=== PATIENT | female | born 1960 | race Caucasian/White ===

== ENCOUNTER 2022-01-25 03:06 | Observation (INO) | payer BC ==
[2022-01-25 03:40] LABS: #Basophils 0.1 10x3/uL (0.0-0.2); #Eosinphils 0.2 10x3/uL (0.0-0.5); #Monocytes 0.5 10x3/uL (0.0-1.1); #Neutrophils 2.5 10x3/uL (1.5-8.4); %Basophils 1.7 % (0.0-2.0); %Eosinophils 4.2 % (0.0-6.0); %Lymphocytes 36.5 % (18.0-47.0); %Neutrophils 47.4 % (40.0-75.0); Hemoglobin 13.9 g/dL (12.0-15.5); Mean Corpuscular Hemoglobin 31.3 pg (27.0-33.0); Mean Corpuscular Volume 94.8 fl (81.6-98.3); Mean Platelet Volume 10.6 fl (7.4-10.4); Platelet Count 289 10x3/uL (150-450); RBC Distribution Width 12.6 % (11.5-14.5); Red Blood Cell (RBC) Count 4.44 10x6/uL (3.90-5.03); White Blood Cell (WBC) Count 5.2 10x3/uL (3.5-10.5)
[2022-01-25 03:57] LABS: ALT (SGPT) 20 U/L (8-55); AST (SGOT) 16 U/L (5-34); Alkaline Phosphatase 63 U/L (40-110); Anion Gap 16 mmol/L (10-20); BUN (Urea Nitrogen) 17 mg/dL (9.8-20.1); Bilirubin, Total 0.2 mg/dL (0.2-1.2); Calc. Creatinine Clearance 0 mL/min (70-130); Calcium 8.6 mg/dL (7.8-10.44); Carbon Dioxide 23 mmol/L (22-29); Chloride 109 mmol/L (98-107); Globulin 1.9 g/dL (2.4-3.5); Glucose 125 mg/dL (70-105); Potassium 3.8 mmol/L (3.5-5.1); Protein, Total 5.9 g/dL (6.0-8.3); Sodium 144 mmol/L (136-145)
[2022-01-25] MEDS ORDERED: Aspirin Chewable 81 MG TAB ONE (04:43)
[2022-01-25] MEDS ORDERED: Acetaminophen 325 MG TAB PO PRN (05:37)
[2022-01-25] MEDS ORDERED: Ondansetron PF 4 MG/2 ML Vial IVP PRN (05:37)
[2022-01-25] MEDS ORDERED: Calcium Carbonate 500 MG ChewTAB PO PRN (05:37)
[2022-01-25] MEDS ORDERED: Guaifenesin DM 100-10/5 ML UDCUP PO PRN (05:37)
[2022-01-25] MEDS ORDERED: Senokot S 8.6-50 MG TAB PO PRN (05:37)
[2022-01-25] MEDS ORDERED: Nitroglycerin 0.4 MG TAB (25 Tab Bottle) SL PRN (05:37)
[2022-01-25] MEDS ORDERED: Zolpidem Tartrate 5 MG TAB PO PRN (05:37)
[2022-01-25 06:46] VITALS: BMI 37.0
[2022-01-25 07:50] LABS: SARS-CoV-2 NAA Rapid Test Not Detected (NotDetected)
[2022-01-25] MEDS ORDERED: Metoprolol Tartrate 25 MG TAB PO SCH (09:00)
[2022-01-25 09:04] LABS: Cardiac Risk 5.3 (Less than 4.5)
[2022-01-25 12:38] LABS: Hemoglobin A1c 5.4 % (4.0-6.0)
[2022-01-25] MEDS ORDERED: Iopamidol 370 76% 100 ML VIAL ONE (13:02)
[2022-01-25 19:22] VITALS: BP 132/81; TEMP 97.7
[2022-01-25] MEDS ORDERED: Atorvastatin Calcium 40 MG TAB PO SCH (21:00)
[2022-01-26] MEDS ORDERED: Aspirin Chewable 81 MG TAB PO SCH (09:00)
== END 2022-01-25 18:30 | disposition home or self-care (01) ==
LOC: CSHERS 03:06 → CSHTELE 06:36
PROVIDERS: ADMIT Student in an Organized Health Care Education/Training Program; ATTEND Nurse Practitioner Family
DX: R07.89 Other chest pain (principal); E78.5 Hyperlipidemia, unspecified; R03.0 Elevated blood-pressure reading, without diagnosis of hypertension; E66.01 Morbid (severe) obesity due to excess calories; K76.9 Liver disease, unspecified; R73.9 Hyperglycemia, unspecified; Z79.82 Long term (current) use of aspirin; F90.9 Attention-deficit hyperactivity disorder, unspecified type
CPT/HCPCS: 36415; 71045; 71275; 74174; 80053; 80061; 83036; 84484; 85025; 93005; 93010; 93306; G0378; Q9967; U0002

== ENCOUNTER 2023-05-05 12:00 | Outpatient (CLI) | payer BC | END 2023-05-05 12:01 | disposition home or self-care (01) | LOC: CSHMAMMO 12:00 | PROVIDERS: ATTEND Obstetrics & Gynecology | DX: Z12.31 Encounter for screening mammogram for malignant neoplasm of breast (principal) | CPT/HCPCS: 77063; 77067 ==